=== PATIENT | female | born 1965 | race Caucasian/White ===

== ENCOUNTER 2024-03-11 19:08 | Emergency (ER) | payer BC, SELFPAY ==
[2024-03-11 19:31] VITALS: BP 185/105; PULSE 90; RESP 16; TEMP 36.9; O2SAT 98; BMI 28.5
--- NOTE | 2024-03-11 19:40 | W.ED.ANIMALB ---
HPI - Animal Bite General: Chief Complaint: Animal Bite Stated Complaint: dog bite left calf Time Seen by Provider: 03/11/24 19:14 History of Present Illness: 58-year-old female comes in today for injury to the left lower leg. Patient has a 2 puncture wounds with abrasion to the left lower calf. Patient reports being bit by a dog on Friday that was her neighbors dog. Neighbor at that time told her that her dog's immunization was up-to-date. Patient was seen at the health department and had her tetanus updated. Patient then saw her primary care and was started on Augmentin. Today patient found out from the neighbor that they could not find the rabies vaccine because of the fact that had been the dog's doctor had close business 2 years ago. [facility] or to find out further information. Related Data Allergies Allergy/AdvReac Type Severity Reaction Status Date / Time No Known Allergies Allergy Verified 03/11/24 19:36 Review of Systems General: Reports: 10 or more systems reviewed and unremarkable except in HPI and below Physical Exam Const: COMMON NORMALS: alert HENMT: COMMON NORMALS: normocephalic HEAD & SCALP: normocephalic Neck/C-Spine: COMMON NORMALS: full ROM Resp: COMMON NORMALS: normal respiratory effort and clear to auscultation bilaterally AUSCULTATION: clear to auscultation bilaterally Cardio: COMMON NORMALS: regular rate RATE: regular rate Back/Pelvis: COMMON NORMALS: thoracic and lumbar spine normal to inspection Extremity: LEFT LOWER EXTREMITY: Yes lower leg (Mild bruising to the calf with 2 puncture wounds and abrasions.) Neuro: SENSORIUM/ORIENTATION: Yes alert Skin: TRAUMA: abrasion (Left lower leg) and puncture (Left lower leg) Course Vital Signs: Vital signs: Vital Signs Temperature 98.5 F 03/11/24 19:31 Pulse Rate 86 03/11/24 20:28 Respiratory Rate 16 03/11/24 20:28 Blood Pressure 177/106 03/11/24 20:28 Pulse Oximetry 98 03/11/24 20:28 Oxygen Delivery Me thod Room Air 03/11/24 19:31 MDM - Animal Bite Medical Decision Making 58-year-old female comes in today for injury to the left lower leg from dog bite 2 days ago. Patient has some bruising and puncture wounds to the left lower leg. Differential diagnosis includes need for prophylaxis tetanus, need for prophylaxis antibiotic, puncture wound, laceration, bruising, fracture, need for prophylaxis?postexposure rabies. Patient was updated on her tetanus at the health department. Patient was started on Augmentin by her primary care. After discussion with the patient she opted to go ahead and start the rabies postexposure prophylaxis series. Patient was given weight-based dose of immunoglobulin and started on the vaccine. Patient was to be continued with the rabies vaccines per day 3, 7, and 14. No radiology studies performed this visit Discharge Plan Discharge Patient Disposition: Home Clinical Impression: Dog bite Qualifiers: Encounter type: initial encounter Qualified Code(s): W54.0XXA - Bitten by dog, initial encounter Condition: Stable Discharge Orders: Discharge ED (Routine); Ordered 03/11/24 Ordered By: Phani Fitch Referrals: Carlos Ren MD [Primary Care Provider] - Discharge Diet: Usual diet Discharge Activity: Increase activity as tolerated Patient Instructions: Rabies Vaccine (By injection), Rabies Immune Globulin (By injection), Animal Bite (ED) Activity Restrictions/Additional Instructions: You will need to return on days 3, 7, and 14 for the completion of the rabies vaccine series. Monitor dog bite site for signs of infection such as increasing redness and swelling. Use ice packs to help with pain. Use acetaminophen and ibuprofen for further pain relief. Coding Level of Care Code ED Section Leader And Machine Setter for Leslee Lagunas
[2024-03-11] MEDS: rabies vaccine 2.5 unit SDV IM (20:06)
[2024-03-11] MEDS: rabies IG 300 unit/mL SDV 1 mL 1320 UNIT IM (20:11)
[2024-03-11 20:28] VITALS: BP 177/106; PULSE 86; RESP 16; O2SAT 98
== END 2024-03-11 20:29 | disposition home or self-care (01) ==
PROVIDERS: Emergency Provider Nurse Practitioner Family; PCP Family Medicine
DX: S81.852A Open bite, left lower leg, initial encounter (principal); W54.0XXA Bitten by dog, initial encounter; Z23 Encounter for immunization; Z20.3 Contact with and (suspected) exposure to rabies; Z29.14 Encounter for prophylactic rabies immune globulin
CPT/HCPCS: 90375; 90471; 90675; 99283

== ENCOUNTER 2024-03-14 07:53 | Emergency (ER) | payer BC, SELFPAY ==
[2024-03-14 08:33] VITALS: BP 161/80; PULSE 73; RESP 18; TEMP 36.8; O2SAT 100
[2024-03-14] MEDS: rabies vaccine 2.5 unit SDV IM (08:34)
--- NOTE | 2024-03-14 08:36 | W.ED.RECABL ---
HPI - Recheck/Abnormal Lab/Rx General: Chief Complaint: Recheck/Abnormal Lab/Rx Stated Complaint: Needing second rabies shot Time Seen by Provider: 03/14/24 08:06 Source: patient Mode of arrival: ambulatory Limitations: no limitations History of Present Illness: 58-year-old female is here for her second rabies vaccine infusion center close today she was bit last week by a dog on her left leg wound is well-appearing no redness no fever. Related Data Allergies Allergy/AdvReac Type Severity Reaction Status Date / Time No Known Allergies Allergy Verified 03/11/24 19:36 Review of Systems Const: Denies: fever(s), chills, body aches or change in appetite ENMT: Denies: throat pain or dental pain Card: Denies: chest pain Resp: Denies: dyspnea GI: Denies: abdominal pain, nausea, vomiting or diarrhea Musc: Reports: extremity pain; Denies: neck pain or back pain Skin/Breast: Denies: rash Neuro: Denies: headache(s) Physical Exam Const: COMMON NORMALS: no limitations HENMT: COMMON NORMALS: normocephalic HEAD & SCALP: normocephalic Chest: COMMONS NORMALS: normal inspection of the chest Resp: COMMON NORMALS: normal respiratory effort Extremity: NARRATIVE EXTREMITY EXAM: Puncture wound left lower leg clean dry intact no signs of infection Course Vital Signs: Vital signs: Vital Signs Temperature 98.2 F 03/14/24 08:33 Pulse Rate 73 03/14/24 08:33 Respiratory Rate 18 03/14/24 08:33 Blood Pressure 161/80 03/14/24 08:33 Pulse Oximetry 100 03/14/24 08:33 Oxygen Delivery Me thod Room Air 03/14/24 08:33 MDM - Recheck/Abnormal Lab/Rx Medical Decision Making Patient presents here for second rabies vaccine did give her vaccine she has no other complaints wounds healing well she is stable for discharge Medical Records I reviewed the patient's medical records. No radiology studies performed this visit Discharge Plan Discharge Condition: Stable Referrals: Carlos Ren MD [Primary Care Provider] - Coding Level of Care Code ED Vehicle Assembly Inspector for Leslee Lagunas
== END 2024-03-14 09:05 | disposition home or self-care (01) ==
PROVIDERS: Emergency Provider Emergency Medicine; PCP Family Medicine
DX: Z29.14 Encounter for prophylactic rabies immune globulin (principal); Z20.3 Contact with and (suspected) exposure to rabies; Z23 Encounter for immunization; W54.0XXA Bitten by dog, initial encounter
CPT/HCPCS: 90471; 90675; 99283

== ENCOUNTER 2024-03-25 08:00 | Oncology outpatient (recurring) (ONCR) | payer BC, SELFPAY ==
[2024-03-18] MEDS: rabies vaccine 2.5 unit SDV IM (15:20)
[2024-03-25] MEDS: rabies vaccine 2.5 unit SDV IM (08:09)
== END 2024-04-12 23:59 | disposition home or self-care (01) ==
PROVIDERS: PCP Family Medicine; Visit Provider Nurse Practitioner Family
DX: Z20.3 Contact with and (suspected) exposure to rabies (principal); Z23 Encounter for immunization; S81.852A Open bite, left lower leg, initial encounter; W54.0XXA Bitten by dog, initial encounter; Z53.9 Procedure and treatment not carried out, unspecified reason
CPT/HCPCS: 90471; 90675